=== PATIENT | female | born 1975 | race Caucasian/White ===

== ENCOUNTER 2020-08-10 11:33 | Emergency (ER) | payer BC, SELFPAY ==
[2020-08-10] VITALS (23 sets, daily range): BP systolic 86–108; BP diastolic 45–78; PULSE 73–93; RESP 15–22; TEMP 36.7; O2SAT 96–100
--- NOTE | 2020-08-10 11:36 | ECG_ITS ---
Measurements Intervals [place] Rate: 81 P: 59 MA: 165 QRS: 8 QRSD: 81 T: 38 QT: 390 QTc: 453 Interpretive Statements SINUS RHYTHM RSR' IN V1 OR V2, CONSIDER RIGHT VENTRICULAR HYPERTROPHY OR RIGHT VCD BORDERLINE ECG Electronically Signed On 08-10-2020 12:51:24 [employer] WORK[employer] by Patrick Wolfe D.O.
[2020-08-10 12:11] LABS: Basophils Percent Auto 0.2 % (0.2-1.2); Eosinophils Percent Auto 0.4 % (0-4.4); Hematocrit 35.8 % (37.0-47.0); Hemoglobin 11.2 g/dL (12.0-15.0); Immature Granulocyte Absolute 0.02 K/mm3 (0.00-0.031); Immature Granulocyte Percent A 0.2 % (0-0.5); Lymphocytes Absolute Auto 1.38 K/mm3 (0.9-3.2); Lymphocytes Percent Auto 15.5 % (18.3-44.2); Mean Corpuscular HGB Conc 31.3 g/dl (32-36); Mean Corpuscular Volume 79.9 fl (80-100); Mean Platelet Volume 8.9 fl (7.4-10.4); Monocytes Absolute Auto 0.6 K/mm3 (0.1-0.6); Monocytes Percent Auto 6.4 % (2.6-8.5); Neutrophils Absolute Auto 6.9 K/mm3 (1.3-6.7); Neutrophils Percent Auto 77.3 % (45.5-73.1); Platelet Count Result 279 k/mm3 (150-375); Red Blood Count 4.48 M/mm3 (4.2-5.4); Red Cell Distribution Width 15.9 % (11.5-14.5); White Blood Count 8.9 K/mm3 (4.5-10.0)
[2020-08-10 12:23] LABS: Alanine Aminotransferase 16 U/L (4-35); Albumin Level 4.2 g/dL (3.5-5.1); Alkaline Phosphatase 92 U/L (38-126); Anion Gap 5 mmol/L (8-16); Aspartate Amino Transferase 26 U/L (14-36); Bilirubin,Total 0.7 mg/dL (0.2-1.3); Blood Urea Nitrogen 7 mg/dL (7-17); Calcium 9.1 mg/dL (8.4-10.2); Carbon Dioxide 30 mmol/L (22-30); Chloride 101 mmol/L (98-107); Estimated CRCL calculation 93 ml/min; Estimated Glomerular Filt Rate > 60; Glucose 117 mg/dL (65-105); Potassium 3.9 mmol/L (3.4-5.0); Sodium 136 mmol/L (137-145)
--- NOTE | 2020-08-10 13:04 | ED.ARRPALP ---
HPI - Arrhythmia/Palpitations General Chief Complaint: Arrhythmia/Palpitations Stated Complaint: HEART PALPATATIONS Time Seen by Provider: 08/10/20 12:13 Source: patient Mode of arrival: ambulatory Limitations: no limitations History of Present Illness HPI narrative: A 45-year-old lady comes into the emergency department with complaints of palpitations. Patient states that she has been feeling for the last couple of days intermittently. Patient cannot put her finger on any certain trigger or feeling. She does states that it feels like her heartbeat is going abnormally. Patient notes that she has had this in the past but it seemed to go away on its own. She denies taking any new medications, denies excessive caffeine or other stimulant use. Patient also states that she has been sleeping normally for her. Patient does note that now here in the emergency department she is no longer having any symptoms. Related Data Home Medications Medication Instructions Recorded Confirmed No Home Medications 08/10/20 08/10/20 Allergies Allergy/AdvReac Type Severity Reaction Status Date / Time hydrocodone AdvReac Unknown HEART Verified 08/10/20 11:34 RACING Review of Systems Review of Systems: Narrative: CONSTITUTIONAL: Denies fever, chills, or sweats. EYES: Denies visual changes, redness, or discharge. ENT: Denies rhinorrhea, congestion, sore throat, or otalgia. CARDIOVASCULAR: Denies chest pain, palpitations, or edema. RESPIRATORY: Denies cough or dyspnea. GASTROINTESTINAL: Denies abdominal pain, nausea, vomiting, or diarrhea. GENITOURINARY: Denies dysuria or hematuria. SKIN: Denies rash or itching. MUSCULOSKELETAL: Denies back pain, joint pain, or myalgia. NEUROLOGIC: Denies headache, numbness, dizziness, or weakness. PSYCHIATRIC: Denies anxiety or depression. Exam Narrative: Exam Narrative: GENERAL: Well-appearing, well-nourished, and in no acute distress. HEAD: Normocephalic, atraumatic. EYES: PERRLA and EOMI. ENT: Nares clear, no rhinorrhea or epistaxis. Mucous membranes moist. NECK: Supple. No adenopathy or masses. No carotid bruits or JVD CHEST: Clear to auscultation. No respiratory distress. No wheezes rales or rhonchi HEART: Regular rate and rhythm. No murmur heard. Normal peripheral pulses. ABDOMEN: Soft, nontender, nondistended, normal active bowel sounds. EXTREMITIES: Normal range of motion. No edema. SKIN: Warm, dry, no rash. NEURO: No focal deficits. Alert and oriented x3. PSYCH: Normal mood and affect. Course Reevaluation(s) Reevaluation #1: Eventually after staying here for a bit the patient did have a few PVCs seen on the monitor. Explained to the patient what these are patient verbalizes her understanding. She was noted to have 1 abnormally low blood pressure. On inspection the cuff was not properly positioned when it was and retaken her blood pressure was within normal limits for her. Current pressure is 95/67. Patient does state that she does run low and this is typical for her. Time: 13:59 Vital Signs Vital signs: Vital Signs Temperature 36.7 C 08/10/20 11:54 Pulse Rate 79 08/10/20 11:54 Respiratory Rate 18 08/10/20 11:54 Blood Pressure 106/66 08/10/20 11:54 Pulse Oximetry 100 08/10/20 11:54 Temperature 36.7 C 08/10/20 11:54 Pulse Rate 76 08/10/20 12:30 Respiratory Rate 20 08/10/20 12:30 Blood Pressure 108/78 08/10/20 12:30 Pulse Oximetry 98 08/10/20 12:30 MDM - Arrhythmia/Palpitations MDM Narrative Medical decision making narrative: In brief a 45-year-old female comes into the emergency department with complaints of palpitations. A couple of PVCs were seen on the radiographer cardiac catheterization. Patient's laboratory data reviewed and unremarkable. I informed the patient that she should start keeping a log of when these are happening and what is going on i.e. related to diet, caffeine intake, sleep habits etc. Patient verbalized her understanding of this. She will be
--- NOTE | 2020-08-10 13:10 | PC.NURSE ---
Called Paula loja, added on MG [id number]
[2020-08-10 13:20] LABS: Magnesium 2.1 mg/dL (1.6-2.3)
[2020-08-10 13:25] LABS: Add Urine Microscopic? YES; Appearance Urine Clear (Clear); Bilirubin Urine Negative (Negative); Blood Urine 3+ (Negative); Color Urine Straw (Yellow); Glucose Urine UA Negative (Negative); Ketones Urine Negative (Negative); Leukocyte Esterase Ur Trace LEU/UL (Negative); Mucus Urine Rare /lpf; Nitrate Urine Negative (Negative); Protein Urine 1+ mg/dL (Negative); RBC Urine >75 /hpf (0-2); Specific Grav Ur 1.011 (1.001-1.035); Squamous Epithelial Cell Urine Rare /hpf (Few); Urobilinogen Urine Negative mg/dL (<2.0); WBC Urine 0-3 /hpf
== END 2020-08-10 14:13 | disposition home or self-care (01) ==
PROVIDERS: Emergency Medicine; Emergency Provider Emergency Medicine; PCP Physician Assistant
DX: R00.2 Palpitations (principal); I49.3 Ventricular premature depolarization
CPT/HCPCS: 36415; 80053; 81001; 83735; 85025; 93005; 99283